=== PATIENT | male | born 1995 | race Caucasian/White ===

== ENCOUNTER 2017-12-27 17:02 | Emergency (ER) | payer SELFPAY ==
--- NOTE | 2017-12-27 17:43 | EDM.PDOC ---
ED HPI GENERAL MEDICAL PROBLEM - General Stated Complaint: light headed / faint Time Seen by Provider: 12/27/17 17:10 Source of Information: Reports: Patient History Limitations: Reports: No Limitations - History of Present Illness INITIAL COMMENTS - FREE TEXT/NARRATIVE: According to patient he was walking his dog today afternoon, he bent forward to tie his shoe lace and when he stood up he felt dizzy for about 10 secs and also felt like his heart was racing and felt anxious and short of breath. The whole episodes lasted for about 10 secs. he did not pass out.Since then he has been feeling fine. No incontinence of urine or stool. No seizure. No tingling or numbness. He claims he feels fine now. But was scared and anxious when he had the episode. Also he claims his neck muscles and his left shoulder has been hurting for 2-3 wks now. He has started job at [employer] in [place] and does lift lot of stuff at work. Onset: Today Onset Date: 12/27/17 Onset Time: 15:00 Severity: Mild Improves with: Reports: None Worsens with: Reports: None Associated Symptoms: Reports: Shortness of Breath. Denies: Confusion, Chest Pain, Cough, Diaphoresis, Fever/Chills, Headaches, Malaise, Nausea/Vomiting, Rash, Seizure, Syncope, Weakness ED ROS GENERAL - Review of Systems Review Of Systems: See Below Constitutional: Denies: Fever, Chills HEENT: Denies: Rhinitis, Throat Pain, Throat Swelling Respiratory: Reports: Shortness of Breath. Denies: Wheezing, Pleuritic Chest Pain, Cough, Sputum Cardiovascular: Reports: Palpitations. Denies: Chest Pain, Lightheadedness GI/Abdominal: Denies: Abdominal Pain, Nausea, Vomiting : Denies: Dysuria, Flank Pain, Frequency Musculoskeletal: Reports: Neck Pain, Joint Pain, Muscle Pain. Denies: Leg Pain , Foot Pain, Joint Swelling, Muscle Stiffness Skin: Denies: Bruising, Pruritis, Rash ED EXAM, GENERAL - Physical Exam Exam: See Below Exam Limited By: No Limitations General Appearance: Alert, WD/WN, No Apparent Distress, Anxious Eye Exam: Bilateral Eye: EOMI, PERRL Ears: Normal External Exam, Normal Canal, Hearing Grossly Normal, Normal TMs Ear Exam: Bilateral Ear: Auricle Normal, Canal Normal, TM normal Nose: Normal Inspection, Normal Mucosa, No Blood Throat/Mouth: Normal Inspection, Normal Lips, Normal Teeth, Normal Gums, Normal Oropharynx, Normal Voice, No Airway Compromise Head: Atraumatic, Normocephalic Neck: Normal Inspection, Supple, Non-Tender, Full Range of Motion Respiratory/Chest: No Respiratory Distress, Lungs Clear, Normal Breath Sounds, No Accessory Muscle Use, Chest Non-Tender Cardiovascular: Normal Peripheral Pulses, Regular Rate, Rhythm, No Edema, No Gallop, No JVD, No Murmur, No Rub GI/Abdominal: Normal Bowel Sounds, Soft, Non-Tender, No Organomegaly, No Distention, No Abnormal Bruit, No Mass Back Exam: Normal Inspection, Full Range of Motion, NT Extremities: Normal Inspection, Normal Range of Motion, No Pedal Edema, Normal Capillary Refill, Other (leftshoulder: No swelling or defromity.Normal ROM. tender over the anterio shouler msucle mass. Nect: Pt has normal ROM tender over the sternal attachment of the sterncleidomastoid msucles.) Neurological: Alert, Oriented, CN II-XII Intact, Normal Cognition, Normal Gait, Normal Reflexes, No Motor/Sensory Deficits Course - Vital Signs Text/Narrative:: Pt reassured that , it appears like he had a short episodes of vasovagal attack which quickly resolved, which is secondary to decreased venous return when he bent down and stood up against gravity.This might happen once in a while. presently he does not feel dizzy and his vitals are stable. I have advised him to drink plenty of water and avoid sudden changes is posture, especially form bending to standing quickly. If the symptoms reoccur and appear more frequently I have advised patient to return to clinic and have further workup. Pt has mechanical left shoulder and neck pain, which might be related to his work and lifting. I have advised patient to use motrin 600mg 3 times daily as needed for few days to help with pain. Departure - Departure Time of Disposition: 17:45 Disposition: Home, Self-Care 01 Condition: Good Clinical Impression: Vasovagal episode, Shoulder pain, left, Neck strain - Discharge Information Instructions: Vasovagal Syncope, Adult - Problem List & Annotations (1) Neck strain SNOMED Code(s): 636701301 Code(s): S16.1XXA - STRAIN OF MUSCLE, FASCIA AND TENDON AT NECK LEVEL, INIT Status: Acute (2) Shoulder pain, left SNOMED Code(s): 79687705, 25133125 Code(s): M25.512 - PAIN IN LEFT SHOULDER Status: Acute (3) Vasovagal episode SNOMED Code(s): 244339610 Code(s): R55 - SYNCOPE AND COLLAPSE Status: Acute - Problem List Review Problem List Initiated/Reviewed/Updated: Yes - Assessment/Plan Assessment:: Vasovagal episode Mechanical left shoulder and neck pain Plan: Pt reassured that , it appears like he had a short episodes of vasovagal attack which quickly resolved, which is secondary to decreased venous return when he bent down and stood up against gravity.This might happen once in a while. presently he does not feel dizzy and his vitals are stable. I have advised him to drink plenty of water and avoid sudden changes is posture, especially form bending to standing quickly. If the symptoms reoccur and appear more frequently I have advised patient to return to clinic and have further workup. Pt has mechanical left shoulder and neck pain, which might be related to his work and lifting. I have advised patient to use motrin 600mg 3 times daily as needed for few days to help with pain.
== END 2017-12-27 17:35 | disposition home or self-care (01) ==
LOC: LB.ED 17:02
DX: S16.1XXA Strain of muscle, fascia and tendon at neck level, initial encounter (principal); M25.512 Pain in left shoulder; R55 Syncope and collapse; X50.0XXA Overexertion from strenuous movement or load, initial encounter
CPT/HCPCS: 99283

== ENCOUNTER 2017-12-30 16:11 | Emergency (ER) | payer SELFPAY ==
--- NOTE | 2017-12-31 00:25 | ER ---
DATE OF SERVICE: 12/30/2017 HPI: A 22-year-old male who comes in with complaints of feeling dizzy intermittently today, seems to happen more when he is standing and walking, when he is sitting, it seems like it gets better. The patient has not been sick recently. He has not had any falls or injuries. He tells me that he was seen here in the emergency room last weekend for the same symptoms that happen when he bent over and straightened up again. He was told that he had a form of nervous reaction which I believe is a vasovagal reaction. The patient is not on any medications and denies using any illicit drugs. OBJECTIVE: GENERAL APPEARANCE: The patient is awake and alert. No obvious distress. VITAL SIGNS: Reviewed. Blood pressure 138/91, he has a low-grade temp of 99.6 , pulse is 93, respirations 18, O2 sats are 100%. HEENT: Eyes, pupils equal, round, and reactive to light. EOMs are intact. Ears, TMs are normal. Nares are patent. Oral mucous membranes moist. Tonsils not enlarged or injected. Pharynx not inflamed. The patient has full and unguarded range of motion of his head and neck. LUNGS: Clear to auscultation with good air exchange throughout the lung cornelius. CARDIAC: Heart sounds distinct. S1, S2 present. Regular rate. No murmurs. SKIN: Warm and dry. ABDOMEN: Soft, nontender. DIAGNOSIS: Dizziness. TREATMENT PLAN: I was planning on ordering some lab work, namely a CBC, CMP, urine tox screen, and an EKG. The patient tells me he does not have insurance and does not want to have any testing done today because he cannot afford it. At this point, I had a conversation with nursing staff. There is a program here that would help to some degree with his expenses based on his income, the patient is unsure of this. I advised the patient that another option would be to follow up in the clinic and establish care with a primary MD. He is in the process of getting health insurance through his work and he is not sure how long this will take. I advised the patient that we either need to do testing tonight or he needs to follow up within a day or 2 to have some of these testing done or at least be re- evaluated in the clinic. The patient would like to follow up in the clinic. He agrees with the treatment plan and has no further questions. The patient is stable at this point of time of discharge. CRS/MODL /[id number] MTDD
== END 2017-12-30 16:51 | disposition home or self-care (01) ==
LOC: LB.ED 16:11
DX: R42 Dizziness and giddiness (principal)
CPT/HCPCS: 99283

== ENCOUNTER 2022-04-08 14:12 | Emergency (ER) | payer BC, OTHER ==
[2022-04-08 15:41] LABS: ESTIMATED GFR 103 mL/min (>60)
== END 2022-04-08 16:00 | disposition home or self-care (01) ==
LOC: LB.ED 14:12
DX: R00.2 Palpitations (principal)
CPT/HCPCS: 36415; 80048; 93005; 93010; 99282; 99285

== ENCOUNTER 2022-07-12 03:46 | Emergency (ER) | payer SELFPAY ==
[2022-07-12] MEDS ORDERED: Sodium Chloride 0.9% 10 ML Syringe FLUSH PRN (05:10)
[2022-07-12 06:00] LABS: ESTIMATED GFR 123 mL/min (>60)
[2022-07-12] MEDS ORDERED: LORazepam 1 MG Tab PO ONE (07:15)
[2022-07-12] MEDS ORDERED: LORazepam 1 MG Tab ONE (07:31)
== END 2022-07-12 07:37 | disposition home or self-care (01) ==
LOC: LB.ED 03:46
DX: R00.2 Palpitations (principal); Z87.891 Personal history of nicotine dependence
CPT/HCPCS: 36415; 80048; 83735; 84100; 84484; 85027; 93005; 99285; A9270